=== PATIENT | male | born 1980 | race Two or more races ===

== ENCOUNTER 2022-01-17 22:38 | Emergency (ER) | payer OTHER ==
[~2022-01-17] VITALS: Ht 193 cm; Wt 97.5 kg
[2022-01-18] MEDS ORDERED: METRONIDAZOLE500 MG PO (06:33)
[2022-01-18] MEDS ORDERED: CIPRO500 MG PO (06:33)
[2022-01-18] MEDS ORDERED: LEVSIN/SL0.125 MG SL ×2 (06:34→06:35)
[2022-01-18] MEDS ORDERED: INTESTINEX680 M1 PO ×2 (06:35)
[2022-01-18] MEDS ORDERED: PEPCID40 MG PO (06:39)
[2022-01-18] MEDS ORDERED: ZOFRAN8 MG PO (06:39)
== END 2022-01-18 06:51 ==
LOC: ER 22:38
DX: K52.9 Noninfective gastroenteritis and colitis, unspecified (principal); E86.0 Dehydration

== ENCOUNTER 2023-01-11 19:16 | Emergency (ER) | payer OTHER ==
[~2023-01-11] VITALS: Ht 193 cm; Wt 97.5 kg
[~2023-01-11 19:16] MED LIST: CIPRO500 MG PO; INTESTINEX680 M1 PO; LEVSIN/SL0.125 MG SL; METRONIDAZOLE500 MG PO; PEPCID40 MG PO; ZOFRAN8 MG PO
[2023-01-11] MEDS ORDERED: PEPCID AC20 MG PO (23:46)
[2023-01-11] MEDS ORDERED: METRONIDAZOLE500 MG PO (23:46)
[2023-01-11] MEDS ORDERED: CIPRO500 MG PO (23:46)
== END 2023-01-12 04:15 | disposition home or self-care (01) ==
LOC: ER 19:16
DX: R10.84 Generalized abdominal pain (principal); Z20.822 Contact with and (suspected) exposure to COVID-19; E16.2 Hypoglycemia, unspecified